=== PATIENT | female | born 1990 | race Caucasian/White ===

== ENCOUNTER 2022-07-03 21:07 | Emergency (ER) | payer MEDICAID ==
[2022-07-03] VITALS (11 sets, daily range): BP systolic 81–136; BP diastolic 38–81
[~2022-07-03] VITALS: Ht 160 cm; Wt 90.9 kg
[~2022-07-03 21:07] MED LIST: FLINTSTONE1; LORTAB 5/3255 MG PO; NEXPLANON68 MG SC; PENICILLN VK250 MG PO; TAM75CAP PO
[2022-07-03 23:19] LABS: BASO% 0.3 % (0-3); EOS% 3.5 % (0-8); HEMATOCRIT 42.5 % (37.0-47.0); HEMOGLOBIN 13.8 g/dl (12.0-16.0); IMMATURE GRANULOCYTES 0.1 % (0.0-5.0); LYMPH% 24.5 % (15-41); MEAN CELL VOLUME 90.8 fL CALC (80.0-100.0); MEAN CORPUSCULAR HGB 29.5 pG CALC (26.0-32.0); MEAN CORPUSCULAR HGB CONC 32.5 g/dL CAL (32.0-36.0); MONO% 7.5 % (2-13); NEUT# 10.54 thou/uL (2.00-7.15); NEUT% 64.1 % (42-76); RED BLOOD COUNT 4.68 mill/uL (4.20-5.60); RED CELL DISTRI WIDTH 12.4 % (11.5-15.5)
[2022-07-03 23:26] LABS: URINE BILIRUBIN - DIPSTICK NEGATIVE (NEGATIVE); URINE BLOOD DIPSTICK NEGATIVE (NEGATIVE); URINE COLOR YELLOW; URINE GLUCOSE - DIPSTICK NEGATIVE (NEGATIVE); URINE KETONE NEGATIVE (NEGATIVE); URINE LEUK ESTERASE NEGATIVE (NEGATIVE); URINE PROTEIN - DIPSTICK NEGATIVE (NEG-TRACE); URINE SPECIFIC GRAVITY >=1.030; URINE UROBILINOGEN - DIPSTICK 0.2 E.U./dL (0.2)
[2022-07-03 23:28] LABS: ALBUMIN 4.4 g/dL (3.2-5.0); ALKALINE PHOSPHATASE 97 u/l (38-126); ANION GAP 10 (6-22 (CALC)); BUN 11 mg/dL (7-17); BUN/CREATININE RATIO 11 (12-20 (CALC)); CARBON DIOXIDE 30 mmol/l (22-30); CHLORIDE 104 mmol/l (95-108); GFR FOR AFR.AMER. > 60 ML/MIN (>=60 (CALC)); GFR OTHER RACES > 60 ML/MIN (>=60 (CALC)); LIPASE 60 u/l (23-300); POTASSIUM 3.8 mmol/l (3.5-5.1); SGOT/AST 35 u/l (14-36); SODIUM 139 mmol/l (137-146); TOTAL PROTEIN 7.6 g/dL (6.3-8.2)
[2022-07-03 23:31] LABS: URINE NITRITE - DIPSTICK NEGATIVE (Negative)
[2022-07-04 00:30] VITALS: BP 120/66
[2022-07-04 00:45] VITALS: BP 117/79
[2022-07-04 01:00] VITALS: BP 132/69
[2022-07-04 01:02] VITALS: BP 132/69
== END 2022-07-04 01:04 | disposition home or self-care (01) ==
LOC: ED 21:07
PROVIDERS: Family Medicine
DX: R10.31 Right lower quadrant pain (principal); F17.200 Nicotine dependence, unspecified, uncomplicated
CPT/HCPCS: Q9967

== ENCOUNTER 2024-04-19 18:54 | Emergency (ER) | payer SELFPAY ==
[~2024-04-19] VITALS: Ht 160 cm; Wt 83.0 kg
[2024-04-19 19:20] VITALS: BP 138/88
[2024-04-19] MEDS ORDERED: KETOROLAC TROMETHAMINE 30 MG/ML SDV IV ONE (19:25)
[2024-04-19] MEDS ORDERED: ALUM & MAG HYDROX-SIMETHICONE 30 ML PO ONE (19:25)
[2024-04-19] MEDS ORDERED: ASPIRIN 81 MG/TAB PO ONE (19:25)
[2024-04-19] MEDS ORDERED: LIDOCAINE VISCOUS 2% 15 ML UDC PO ONE (19:25)
[2024-04-19] MEDS ORDERED: PANTOPRAZOLE SODIUM Sesquihydr 40 MG/TAB PO ONE (19:25)
[2024-04-19 19:33] VITALS: BP 129/87
[2024-04-19 19:33] LABS: BASO% 0.3 % (0-3); EOS% 0.7 % (0-8); HEMATOCRIT 44.2 % (37.0-47.0); HEMOGLOBIN 14.5 g/dl (12.0-16.0); IMMATURE GRANULOCYTES 0.1 % (0.0-5.0); LYMPH% 19.6 % (15-41); MEAN CELL VOLUME 89.7 fL CALC (80.0-100.0); MEAN CORPUSCULAR HGB 29.4 pG CALC (26.0-32.0); MEAN CORPUSCULAR HGB CONC 32.8 g/dL CAL (32.0-36.0); MONO% 6.5 % (2-13); NEUT# 10.1 thou/uL (2.00-7.15); NEUT% 72.8 % (42-76); RED BLOOD COUNT 4.93 mill/uL (4.20-5.60); RED CELL DISTRI WIDTH 12.1 % (11.5-15.5)
[2024-04-19 19:47] LABS: ALBUMIN 4.8 g/dL (3.2-5.0); ALKALINE PHOSPHATASE 88 u/l (38-126); ANION GAP 16 (6-22 (CALC)); BILIRUBIN, TOTAL 0.6 mg/dL (0.02-1.3); BUN 12 mg/dL (7-17); BUN/CREATININE RATIO 11 (12-20 (CALC)); CARBON DIOXIDE 24 mmol/l (22-30); CHLORIDE 104 mmol/l (95-108); CREATININE 1.1 mg/dL (0.5-1.0); ESTIMATED GFR 68 ML/MIN (>=90 (CALC)); LIPASE 74 u/l (23-300); POTASSIUM 3.9 mmol/l (3.5-5.1); SGOT/AST 31 u/l (14-36); SODIUM 140 mmol/l (137-146); TOTAL PROTEIN 8.2 g/dL (6.3-8.2)
[2024-04-19 19:55] LABS: D-DIMER < 0.19 mg/L (0.19-0.60)
[2024-04-19 20:00] VITALS: BP 139/87
[2024-04-19 20:07] LABS: ACT PARTIAL THROMBO TIME 27.5 SECONDS (20.0-32.5); PROTHROMBIN TIME 11.2 SECONDS (9.0-12.5)
[2024-04-19 20:15] VITALS: BP 141/86
[2024-04-19 20:30] VITALS: BP 140/86
[2024-04-19] MEDS ORDERED: TORADOL PO (20:56)
[2024-04-19 21:08] VITALS: BP 140/86
== END 2024-04-19 21:30 | disposition home or self-care (01) | DRG 313 ==
LOC: ED 18:54
PROVIDERS: Family Medicine
DX: R07.89 Other chest pain (principal)

== ENCOUNTER 2024-07-17 09:24 | Day surgery (SDC) | payer SELFPAY ==
[~2024-07-17] VITALS: Ht 162.6 cm; Wt 86.2 kg
[~2024-07-17 09:24] MED LIST changes: +ADVIL200 MG PO; +FISH OIL1 CAP PO; +MULTIVITAMI9 PO; +TORADOL PO; +VITAMIN D50000 UNI1
[2024-07-17] MEDS ORDERED: ceFAZolin Sodium 2 GM/VIAL SDV ONE (09:43)
[2024-07-17] MEDS ORDERED: MIDAZOLAM HCL 2 MG/2 ML VIAL ONE (09:43)
[2024-07-17] MEDS ORDERED: FAMOTIDINE 10MG/ML 2ML SDV IV ONE (09:43)
[2024-07-17] MEDS ORDERED: SODIUM CHLORIDE 0.9% 1,000 ML IV ONE ×4 (09:44→13:24)
[2024-07-17] MEDS ORDERED: SODIUM CHLORIDE 0.9% 100 ML IV ONE (09:44)
[2024-07-17] MEDS ORDERED: PERCOCET 5/325M1 TAB PO (12:14)
[2024-07-17] MEDS ORDERED: ONDANSETRON HCl 4 MG/2 ML SDV ONE (12:37)
[2024-07-17 13:19] VITALS: BP 130/83
[2024-07-17] MEDS ORDERED: SODIUM CHLORIDE 1,000 ML BTL IR ONE (13:24)
[2024-07-17] MEDS ORDERED: STERILE WATER FOR IRRIGATION 500 ML BTL IR ONE (13:24)
[2024-07-17] MEDS ORDERED: LIDOcaine HCl 1% (Local Anesth.) 20 ML VIAL ONE (13:24)
[2024-07-17] MEDS ORDERED: KETOROLAC TROMETHAMINE 30 MG/ML SDV IV ONE (15:29)
[2024-07-17] MEDS ORDERED: PROPOFOL 200 MG/20 ML VIAL IV ONE (15:29)
[2024-07-17] MEDS ORDERED: ONDANSETRON HCl 4 MG/2 ML SDV IV ONE (15:29)
[2024-07-17] MEDS ORDERED: SUCCINYLCHOLINE CHLORIDE 20 MG/ML 10ML VIAL IV ONE (15:29)
[2024-07-17] MEDS ORDERED: ACETAMINOPHEN 1,000 MG/100 ML VIAL IV ONE (15:29)
[2024-07-17] MEDS ORDERED: LIDOCAINE HCL 2% 2ML SDV IV ONE (15:29)
[2024-07-17] MEDS ORDERED: ROCURONIUM BROMIDE 10 MG/ML 5 ML VIAL IV ONE (15:29)
[2024-07-17] MEDS ORDERED: SUGAMMADEX SODIUM 200 MG/2 ML SDV IV ONE (15:29)
[2024-07-17] MEDS ORDERED: SODIUM CHLORIDE 0.9% 1,000 ML BAG IV ONE (15:29)
[2024-07-17] MEDS ORDERED: DiphenhydrAMINE HCL 50 MG/ML SDV IV ONE (15:29)
== END 2024-07-17 13:41 | disposition home or self-care (01) | DRG 419 ==
LOC: ORM 09:24
PROVIDERS: ATTEND Surgery
PROC: 0FT44ZZ Resection of Gallbladder, Percutaneous Endoscopic Approach (ICD-10-PCS; principal; 2024-07-17)
DX: K80.10 Calculus of gallbladder with chronic cholecystitis without obstruction (principal)
CPT/HCPCS: J0131; J0690; J1100; J1200; J2405